=== PATIENT | male | born 1950 | race African-American/Black ===

== ENCOUNTER 2024-03-01 03:17 | Emergency (ER) | payer MEDICARE ==
[~2024-03-01] VITALS: Ht 177.8 cm; Wt 73.0 kg
[2024-03-01 03:22] VITALS: O2SAT 99
[2024-03-01 04:28] LABS: BASOPHILS % 1.1 % (0.0-2.0); CHLORIDE 108 mEq/L (98-107); EOSINOPHILS % 3.8 % (0.0-5.0); HEMOGLOBIN. 15.6 g/dL (14.0-18.0); LYMPHOCYTES % 33.4 % (20.0-50.0); MEAN CORPUSCULAR HEMOGLOBIN 31.3 pg (28.0-32.0); MEAN CORPUSCULAR HGB CONC 33.8 g/dL (31.0-37.0); MEAN CORPUSCULAR VOLUME 92.5 fL (80.0-94.0); MEAN PLATELET VOLUME 7.8 fl (7.4-10.4); NEUTROPHILS % 55.7 % (40.0-76.0); PLATELET 201 x1000/uL (130-400); RED BLOOD CELL COUNT 4.98 mill/uL (4.7-6.1); RED CELL DISTRIBUTION WIDTH 16.3 % (11.6-14.6); SODIUM 140 mEq/L (136-145); WHITE BLOOD COUNT 4.9 x1000/uL (4.5-11.0)
[2024-03-01 04:29] LABS: CARBON DIOXIDE 29 mEq/L (21-32)
[2024-03-01 04:30] LABS: CALCIUM 8.9 mg/dL (8.7-10.4)
[2024-03-01] MEDS: ONDANSETRON HCL 4MG/2ML INJ IV STA ×2 (04:32→05:36)
[2024-03-01] MEDS: SODIUM CHLORIDE 0.9% 1,000 ML IV ONE (04:32)
[2024-03-01] MEDS: MORPHINE SULFATE 4 MG/ML INJ (FOR IV/IM USE) IV STA ×2 (04:32→05:36)
[2024-03-01 04:34] LABS: CREATININE 0.9 mg/dL (0.6-1.3); GLUCOSE 119 mg/dL (70-105)
[2024-03-01 04:35] LABS: UREA NITROGEN BLOOD 8 mg/dL (9-23)
[2024-03-01 04:46] LABS: PROTHROMBIN TIME 11.3 sec (9.6-11.0)
[2024-03-01 13:01] VITALS: BP 132/82; PULSE 62; RESP 14; TEMP 97.6
== END 2024-03-01 18:09 | disposition home or self-care (01) ==
LOC: EDBD 03:24 → ER 03:24 → EDBEDREQ 06:05 → ER 18:09
DX: K40.90 Unilateral inguinal hernia, without obstruction or gangrene, not specified as recurrent (principal); J45.909 Unspecified asthma, uncomplicated; I10 Essential (primary) hypertension
CPT/HCPCS: 99291; 74176; 96374; 96361; 96375; 80048; 83690; 85025; 85610; 36415; J2405; J2270; J7030